=== PATIENT | male | born 1980 | race Caucasian/White ===

== ENCOUNTER 2024-07-20 11:49 | Emergency (ER) | payer SELFPAY ==
[~2024-07-20] VITALS: Ht 180.3 cm; Wt 86.2 kg
[2024-07-20 11:58] VITALS: BP 125/92; PULSE 84; RESP 20; TEMP 98.6; O2SAT 99
[2024-07-20 12:51] LABS: BASOPHILS # (AUTO) 0.09 K/uL (0.00-0.20); BASOPHILS % (AUTO) 1.4 % (0.0-5.0); EOSINOPHILS # (AUTO) 0.21 K/uL (0.00-0.70); EOSINOPHILS % (AUTO) 3.3 % (0.0-8.0); HEMATOCRIT 42.7 % (42-54); IMMATURE GRANULOCYTE ABSOLUTE 0.01 K/uL (0-1); LYMPHOCYTES # (AUTO) 1.9 K/uL (1.0-4.8); LYMPHOCYTES % (AUTO) 29.5 % (21.0-51.0); MEAN CORPUSCULAR HGB CONC 33.5 g/dL (32.0-36.0); MEAN CORPUSCULAR VOLUME 92.6 fL (79-99); MONOCYTES # (AUTO) 0.5 K/uL (0.1-1.0); MONOCYTES % (AUTO) 7.7 % (3.0-13.0); NEUTROPHILS # (AUTO) 3.7 K/uL (1.8-7.7); NEUTROPHILS % (AUTO) 57.9 % (40.0-77.0); PLATELET COUNT (AUTO) 169 K/uL (130-400); RED BLOOD CELL COUNT(AUTO) 4.61 MIL/uL (4.50-6.20); RED CELL DISTRIBUTION WIDTH 12.8 % (11.0-15.5); WHITE BLOOD COUNT (AUTO) 6.3 K/uL (4.8-10.8)
[2024-07-20 13:01] LABS: CARBON DIOXIDE 29 mmol/L (21-32); CHLORIDE 105 mmol/L (101-111); CREATININE 0.8 mg/dL (0.5-1.3); GLOMERULAR FILTR. RATE CALC 113 mL/min (>90); GLUCOSE,RANDOM 93 mg/dL (70-105); POTASSIUM 3.7 mmol/L (3.5-5.1); SODIUM SERUM 142 mmol/L (136-145); UREA NITROGEN, BLOOD 17 mg/dL (7-18)
[2024-07-20 13:42] LABS: ACETAMINOPHEN < 1 mcg/mL (10-29); SALICYLATE < 2.8 mg/dL (2.8-20.0)
--- NOTE | 2024-07-20 14:28 | EKG ---
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
--- NOTE | 2024-07-20 14:47 | NUR ---
PT REFUSED TO PROVIDE UA SAMPLE ERMD MADE AWARE, PER [facility] PT CLEARED FOR DISCHARGE
--- NOTE | 2024-07-20 14:52 | ERN ---
General Chief Complaint: Suicidal Ideation Stated Complaint: SI Time Seen by MD: 11:51 Time Seen by Midlevel: 11:51 Source: patient, EMS History of Present Illness Initial Comments 43-year-old male who presents to the emergency department by EMS due to suicide ideation. Per EMS patient is coming from [facility], paraplegic. Patient states suicide ideation with no plan. PMHx anxiety Allergies: Coded Allergies: No Known Drug Allergies (Unverified Allergy, Intermediate, 07/20/24) Past Medical History Past Medical History: Anxiety, Other Medical History Other: SI Past Surgical History: None ROS Dictation Constitutional: Negative for fever,chills, and weight loss Eyes: Negative for injury, pain,redness, and discharge ENT: Negative for injury,pain or swelling Cardiovascular: Negative for chest pain, palpitations, and edema Respiratory: Negative for shortness of breath, cough, and wheezing, Abdomen/GI: Negative for abdominal pain, nausea, vomiting, diarrhea, and constipation Back: Negative for injury and pain : Negative for painful urination, bleeding or discharge MS/Extremity: Negative for injury and deformity Skin: Negative for rash, and discoloration Neuro: Negative for headache, weakness, numbness, tingling, and seizure Psych: Positive for suicide ideation Negative for homicidal ideation, and hallucinations Physical Exam Physical Exam Dictation General: awake, alert, no acute distress Head/Face: Normocephalic, atraumatic Eyes: PERRL, EOMI, normal conjunctiva ENT: oral cavity clear, oral mucosa moist Neck: Supple, normal range of motion Cardiovascular: RRR, normal S1/S2 Respiratory: CTAB, no respiratory distress, no rales or wheezes Abdomen: Soft, non-tender, non-distended, no guarding or rebound. Skin: Warm, dry, normal turgor, no rash MS/Extremity: Pulses equal, no cyanosis, neurovascular intact, FROM. Paraplegic Neuro: COAx4, GCS 15, at baseline, no neurological deficits Psych: Suicide ideation Results Laboratory and Microbiology Lab and Micro Result Laboratory Tests Test 07/20/24 12:45 White Blood Count 6.3 K/uL (4.8-10.8) Red Blood Count 4.61 MIL/uL (4.50-6.20) Hemoglobin 14.3 g/dL (14.0-18.0) Hematocrit 42.7 % (42-54) Mean Corpuscular Volume 92.6 fL (79-99) Mean Corpuscular Hemoglobin 31.0 pg (27.0-33.0) Mean Corpuscular Hemoglobin Concent 33.5 g/dL (32.0-36.0) Red Cell Distribution Width 12.8 % (11.0-15.5) Platelet Count 169 K/uL (130-400) Mean Platelet Volume 10.9 fL (7.5-10.5) H Immature Granulocyte % (Auto) 0.2 % (0-1) Neutrophils (%) (Auto) 57.9 % (40.0-77.0) Lymphocytes (%) (Auto) 29.5 % (21.0-51.0) Monocytes (%) (Auto) 7.7 % (3.0-13.0) Eosinophils (%) (Auto) 3.3 % (0.0-8.0) Basophils (%) (Auto) 1.4 % (0.0-5.0) Neutrophils # (Auto) 3.7 K/uL (1.8-7.7) Lymphocytes # (Auto) 1.9 K/uL (1.0-4.8) Monocytes # (Auto) 0.5 K/uL (0.1-1.0) Eosinophils # (Auto) 0.21 K/uL (0.00-0.70) Basophils # (Auto) 0.09 K/uL (0.00-0.20) Absolute Immature Granulocyte (auto 0.01 K/uL (0-1) Nucleated Red Blood Cells 0.0 % (0.0-0.19) Sodium Level 142 mmol/L (136-145) Potassium Level 3.7 mmol/L (3.5-5.1) Chloride Level 105 mmol/L (101-111) Carbon Dioxide Level 29 mmol/L (21-32) Blood Urea Nitrogen 17 mg/dL (7-18) Creatinine 0.8 mg/dL (0.5-1.3) Glomerular Filtration Rate Calc 113 mL/min (>90) Random Glucose 93 mg/dL (70-105) Total Calcium 8.7 mg/dL (8.5-10.1) Troponin I High Sensitivity 11 ng/L (4-75) Salicylates Level < 2.8 mg/dL (2.8-20.0) L Acetaminophen Level < 1 mcg/mL (10-29) L Labs Reviewed?: Yes EKG/XRAY/US/CT/MRI EKG Comment Date: 07/20/2024 Time: 12 11 Rate: 63 EKG interpretation: Sinus rhythm, ST elevation probable normal early repolarization, no STEMI Reviewed by ED Attending MDM MDM: Differential diagnosis: Suicide ideation, homicidal ideation, anxiety, depression, psychosis Rationale: 43-year-old male who presents to the emergency department by EMS due to suicide ideation. Per EMS patient is coming from [facility], paraplegic. Patient states suicide ideation with no plan. PMHx anxiety Per physical examination patient is in no acute distress, nontoxic appearing. Labs obtained CBC and chemistry Toxicology within normal limits. Patient refused to provide urine. Patient was screened by [facility], they stated patient did not meet criteria for inpatient facility. Patient was to follow up outpatient. Patient was provided a safety plan. Advised to follow up with PCP. Return to the emergency department if any worsening symptoms. Patient verbalized understanding. There are no social concerns with this patient. I independently interpreted the test that were performed, results were reviewed by me and considered findings on radiology if ordered. Medical management and examination interpretation discussions were had by me with other qualified healthcare professionals as indicated for the patient's care. ED Course Orders Procedure Category Date Status Time Cbc With Differential LAB 07/20/24 Complete 11:51 Basic Metabolic Panel LAB 07/20/24 Complete 11:51 12 Lead Ekg Tracing- EKG 07/20/24 Resulted Technical 11:51 Troponin I High LAB 07/20/24 Complete Sensitivity 11:51 Acetaminophen LAB 07/20/24 Complete 11:51 Salicylate LAB 07/20/24 Complete 11:51 Vital Signs Date Time Temp Pulse Resp B/P (MAP) Pulse Ox O2 Delivery O2 Flow Rate FiO2 07/20/24 11:58 98.6 84 20 125/92 99 Room Air* 0 21 07/20/24 11:49 84 20 125/92 99 0 DX & DISP Disposition: Discharge Departure Impression: Primary Impression: Suicide ideation Condition: Stable Additional Instructions: Discharge home. Rest. Follow up with primary care in 24 hours. Return to the ER for any acute changes or worsening symptoms. If any medications were prescribed take as directed. Okay to continue home medications unless otherwise discussed during your visit in the emergency room today. Patient was also advised to follow-up with primary care physician in 1 to 2 days for continued monitoring. Referrals: SELF,REFERRAL (PCP) I performed the substantive portion of the visit. I have reviewed and personally made and approve the management plan that is documented in the notes by myself or the MI. I acknowledge full responsibility for the patient's management plan. CLAIRE KUMAR Jul 20, 2024 14:52 LILY CARTER DO July 22, 2024 09:54
== END 2024-07-20 15:11 | disposition home or self-care (01) ==
LOC: EDH 11:49
DX: R45.851 Suicidal ideations (principal); F41.9 Anxiety disorder, unspecified; G82.20 Paraplegia, unspecified
CPT/HCPCS: 99285; 84484; 80048; 85025; 36415; 93005; G0481